=== PATIENT | female | born 1955 | race Hispanic/Latino ===

== ENCOUNTER 2018-05-21 15:55 | Emergency (ER) | payer BC ==
[2018-05-21 16:54] LABS: CREATININE 0.9 mg/dL (0.5-1.5); POTASSIUM 3.7 mmol/L (3.5-5.1)
[2018-05-21 16:57] LABS: BASOPHILS % (AUTO) 0.3 % (0.0-5.0); EOSINOPHILS % (AUTO) 4.5 % (0.0-8.0); HEMATOCRIT 39.4 % (36-48); LYMPHOCYTES % (AUTO) 22.2 % (21.0-51.0); MEAN CORPUSCULAR HEMOGLOBIN 30.4 pg (27.0-33.0); MEAN CORPUSCULAR VOLUME 92.2 fL (79-99); MONOCYTES % (AUTO) 7.6 % (3.0-13.0); NEUTROPHILS % (AUTO) 65.4 % (40.0-77.0); NUCLEATED RED BLOOD CELLS 0.1 % (0.0-0.19); PLATELET COUNT (AUTO) 216 K/uL (130-400); RED BLOOD CELL COUNT(AUTO) 4.28 MIL/uL (4.00-5.50); RED CELL DISTRIBUTION WIDTH 12.7 % (11.0-15.5); WHITE BLOOD COUNT (AUTO) 7.1 K/uL (4.8-10.8)
== END 2018-05-21 18:20 | disposition home or self-care (01) ==
LOC: EDH 15:55
DX: I10 Essential (primary) hypertension (principal); K21.9 Gastro-esophageal reflux disease without esophagitis; Z98.51 Tubal ligation status; Z98.890 Other specified postprocedural states
CPT/HCPCS: 36415; 80048; 85025; 93005

== ENCOUNTER 2019-03-16 15:01 | Observation (INO) | payer BC ==
[~2019-03-16] VITALS: Ht 152.4 cm; Wt 93.0 kg
[2019-03-16] MEDS ORDERED: ASPIRIN 325 MG TABLET ONE (15:19)
[2019-03-16 15:41] LABS: BASOPHILS % (AUTO) 0.5 % (0.0-5.0); HEMATOCRIT 38.9 % (36-48); LYMPHOCYTES % (AUTO) 21.6 % (21.0-51.0); MEAN CORPUSCULAR HEMOGLOBIN 31.2 pg (27.0-33.0); MEAN CORPUSCULAR HGB CONC 34.5 g/dL (32.0-36.0); MEAN CORPUSCULAR VOLUME 90.4 fL (79-99); MONOCYTES % (AUTO) 8.4 % (3.0-13.0); NEUTROPHILS % (AUTO) 63.5 % (40.0-77.0); NUCLEATED RED BLOOD CELLS 0.1 % (0.0-0.19); PLATELET COUNT (AUTO) 237 K/uL (130-400); RED CELL DISTRIBUTION WIDTH 13.2 % (11.0-15.5); WHITE BLOOD COUNT (AUTO) 7.4 K/uL (4.8-10.8)
[2019-03-16] MEDS ORDERED: NITROGLYCERIN 1GM/1 INCH PACKET TD ONE ×2 (15:43→20:45)
[2019-03-16 15:50] LABS: CREATININE 0.9 mg/dL (0.5-1.5); POTASSIUM 3.7 mmol/L (3.5-5.1)
[2019-03-16 15:52] LABS: INR 0.97 (0.85-1.15); PARTIAL THROMBOPLASTIN TIME 26.8 SEC (26.3-35.5); PROTHROMBIN TIME 10.2 SEC (9.6-11.6)
[2019-03-16 15:55] LABS: ALBUMIN 3.2 g/dL (3.5-5.0); BILIRUBIN,TOTAL 0.4 mg/dL (0.2-1.0); TOTAL PROTEIN, SERUM 7.3 g/dL (6.0-8.3)
[2019-03-16 16:12] LABS: B-TYPE NATRIURETIC PEPTIDE 108 pg/mL (0-100)
[2019-03-16] MEDS ORDERED: CLONIDINE HCL 0.1 MG TABLET ONE ×2 (17:39→17:41)
[2019-03-16] MEDS ORDERED: MORPHINE SULFATE 2 MG/ML 1ML SYG IV PRN (20:30)
[2019-03-16] MEDS: NITROGLYCERIN 1GM/1 INCH PACKET TD SCH (20:30)
[2019-03-16] MEDS ORDERED: METOPROLOL TARTRATE 50 MG TAB ONE (20:44)
[2019-03-16] MEDS ORDERED: METOPROLOL TARTRATE 50 MG TAB PO SCH (21:00)
[2019-03-16] MEDS: FAMOTIDINE/PF 20 MG/2 ML VIAL IV SCH (21:00)
[2019-03-16] MEDS ORDERED: ACETAMINOPHEN 325 MG TAB ONE (23:24)
[2019-03-17 04:24] LABS: BASOPHILS % (AUTO) 0.2 % (0.0-5.0); EOSINOPHILS % (AUTO) 4.5 % (0.0-8.0); HEMATOCRIT 38.7 % (36-48); LYMPHOCYTES % (AUTO) 20.7 % (21.0-51.0); MEAN CORPUSCULAR HEMOGLOBIN 31.1 pg (27.0-33.0); MEAN CORPUSCULAR HGB CONC 33.8 g/dL (32.0-36.0); MEAN CORPUSCULAR VOLUME 91.8 fL (79-99); MONOCYTES % (AUTO) 6.7 % (3.0-13.0); NEUTROPHILS % (AUTO) 67.9 % (40.0-77.0); NUCLEATED RED BLOOD CELLS 0.1 % (0.0-0.19); PLATELET COUNT (AUTO) 202 K/uL (130-400); RED BLOOD CELL COUNT(AUTO) 4.22 MIL/uL (4.00-5.50); RED CELL DISTRIBUTION WIDTH 13.1 % (11.0-15.5); WHITE BLOOD COUNT (AUTO) 8.4 K/uL (4.8-10.8)
[2019-03-17] MEDS: NITROGLYCERIN 1GM/1 INCH PACKET TD SCH ×3 (04:30→19:47)
[2019-03-17 04:32] LABS: HEMOGLOBIN A1C 5.6 % (4.0-6.0)
[2019-03-17 04:41] LABS: CREATININE 0.7 mg/dL (0.5-1.5); POTASSIUM 3.4 mmol/L (3.5-5.1)
[2019-03-17] MEDS ORDERED: POTASSIUM CHLORIDE 20MEQ/100ML 100 ML IV PRN (06:00)
[2019-03-17] MEDS ORDERED: LIDOCAINE HCL-MPF 1% 2ML VIAL IV PRN (06:00)
[2019-03-17 08:30] VITALS: BP 178/108
[2019-03-17] MEDS: ASPIRIN 81MG TAB.CHEW PO SCH (09:00)
[2019-03-17] MEDS ORDERED: ENOXAPARIN SODIUM 30 MG/0.3 ML SQ SCH (09:00)
[2019-03-17] MEDS: FAMOTIDINE/PF 20 MG/2 ML VIAL IV SCH ×2 (09:40→21:02)
[2019-03-17 11:30] VITALS: BP 149/92
[2019-03-17] MEDS ORDERED: METO100T14 PO (15:28)
[2019-03-17] MEDS ORDERED: OMEP-50 PO (15:28)
[2019-03-17] MEDS: HYDRALAZINE HCL 20 MG/ML VIAL IV PRN (15:38)
[2019-03-17 15:57] VITALS: BP 187/109
[2019-03-17] MEDS ORDERED: REGADENOSON 0.4 MG/5 ML PF SYG IVP SCH (16:00)
[2019-03-17 19:05] VITALS: BP 162/89
[2019-03-17] MEDS: METOPROLOL TARTRATE 50 MG TAB PO SCH (20:58)
[2019-03-17 23:09] VITALS: BP 169/77
[2019-03-18] VITALS (7 sets, daily range): BP systolic 138–204; BP diastolic 83–111
[2019-03-18] MEDS: NITROGLYCERIN 1GM/1 INCH PACKET TD SCH ×3 (02:39→18:38)
[2019-03-18] MEDS: ACETAMINOPHEN 325 MG TAB PO PRN (04:00)
[2019-03-18] MEDS: ASPIRIN 81MG TAB.CHEW PO SCH (09:37)
[2019-03-18] MEDS: LOSARTAN 50 MG TABLET PO SCH (09:37)
[2019-03-18] MEDS: FAMOTIDINE/PF 20 MG/2 ML VIAL IV SCH ×2 (09:37→21:34)
[2019-03-18] MEDS: METOPROLOL TARTRATE 50 MG TAB PO SCH ×2 (09:38→21:34)
--- NOTE | 2019-03-18 18:00 | NUR ---
INITIAL MET W PATIENT AND SISTER AT BEDSIDE INDP, ALERT, NO DME, LIVES ALONE WITH PETS, HERE FOR CHEST PAIN WITH DISCHARGE ANTICIPATED TOMORROW, NO DC NEEDS ANTICIPATED PT STATED THAT WHEN SHE WAS A [employer]PER[employer] SHE ASKED A LOT MORE QUESTIONS AND WAS IN THE ROOM MUCH LONGER. THIS CM ADVISE DHER THAT THIS IS A SCREENING AND IF SHE HAD NEEDS, WE WOULD FOCUS ON THOSE Addendum: 03/18/19 at 2000 by KARLA SPARROW RN CM Amended: Links added.
[2019-03-18] MEDS: HYDRALAZINE HCL 20 MG/ML VIAL IV PRN (23:02)
[2019-03-19] VITALS (13 sets, daily range): BP systolic 117–166; BP diastolic 62–96
[2019-03-19] MEDS: NITROGLYCERIN 1GM/1 INCH PACKET TD SCH ×3 (02:57→18:47)
[2019-03-19 05:04] LABS: HEMATOCRIT 39.7 % (36-48); MEAN CORPUSCULAR HGB CONC 33.6 g/dL (32.0-36.0); MEAN CORPUSCULAR VOLUME 92.2 fL (79-99); PLATELET COUNT (AUTO) 224 K/uL (130-400); RED BLOOD CELL COUNT(AUTO) 4.31 MIL/uL (4.00-5.50); RED CELL DISTRIBUTION WIDTH 13.2 % (11.0-15.5); WHITE BLOOD COUNT (AUTO) 7.5 K/uL (4.8-10.8)
[2019-03-19 05:09] LABS: PARTIAL THROMBOPLASTIN TIME 27.2 SEC (26.3-35.5); PROTHROMBIN TIME 10.5 SEC (9.6-11.6)
[2019-03-19 05:10] LABS: CREATININE 0.9 mg/dL (0.5-1.5); POTASSIUM 3.9 mmol/L (3.5-5.1)
[2019-03-19 05:27] LABS: EOSINOPHILS % (MANUAL) 2 % (1-6); LYMPHOCYTES % (MANUAL) 15 % (22-44); MAN.DIFF COMMENT-IMPRESSION MANUAL DIFFERENTIAL; MONOCYTES % (MANUAL) 8 % (2-9); SEGMENTED NEUTROPHILS % 75 % (40-70)
[2019-03-19 05:28] LABS: PLATELET MORPHOLOGY COMMENT ADEQUATE
[2019-03-19] MEDS ORDERED: IOHEXOL 350 MG/ML 100ML INFUS..BTL IV ONE (07:36)
[2019-03-19] MEDS ORDERED: LIDOCAINE HCL 2% 20ML ONE (07:36)
[2019-03-19] MEDS ORDERED: IOHEXOL-350 50ML VIAL IV ONE (07:36)
[2019-03-19] MEDS ORDERED: LABETALOL HCL 5 MG/ML 20ML VIAL IV ONE (08:14)
--- NOTE | 2019-03-19 09:10 | NUR ---
Pt returned from Heart cath. Right groin free of hematomas and bruising. Pt denies numbness. Instructed on bedrest, verbalized understanding
[2019-03-19] MEDS: LOSARTAN 50 MG TABLET PO SCH (12:14)
[2019-03-19] MEDS: ASPIRIN 81MG TAB.CHEW PO SCH (12:14)
[2019-03-19] MEDS: FAMOTIDINE/PF 20 MG/2 ML VIAL IV SCH ×2 (12:14→20:42)
[2019-03-19] MEDS: METOPROLOL TARTRATE 50 MG TAB PO SCH ×2 (16:37→20:42)
[2019-03-19] MEDS: ACETAMINOPHEN 325 MG TAB PO PRN (16:37)
[2019-03-20] VITALS: BP 145/69
[2019-03-20] MEDS: NITROGLYCERIN 1GM/1 INCH PACKET TD SCH ×2 (01:50→10:15)
[2019-03-20 03:00] VITALS: BP 167/99
[2019-03-20 04:31] LABS: HEMATOCRIT 37.2 % (36-48); MEAN CORPUSCULAR HGB CONC 33.6 g/dL (32.0-36.0); MEAN CORPUSCULAR VOLUME 92.2 fL (79-99); PLATELET COUNT (AUTO) 233 K/uL (130-400); RED BLOOD CELL COUNT(AUTO) 4.03 MIL/uL (4.00-5.50); RED CELL DISTRIBUTION WIDTH 13.2 % (11.0-15.5); WHITE BLOOD COUNT (AUTO) 7.3 K/uL (4.8-10.8)
[2019-03-20 04:44] LABS: CREATININE 0.9 mg/dL (0.5-1.5); POTASSIUM 3.8 mmol/L (3.5-5.1)
[2019-03-20 04:56] LABS: BAND NEUTROPHILS % (MANUAL) 6 % (0-2); EOSINOPHILS % (MANUAL) 2 % (1-6); LYMPHOCYTES % (MANUAL) 20 % (22-44); MAN.DIFF COMMENT-IMPRESSION MANUAL DIFFERENTIAL; MONOCYTES % (MANUAL) 3 % (2-9); PLATELET MORPHOLOGY COMMENT ADEQUATE; SEGMENTED NEUTROPHILS % 69 % (40-70)
[2019-03-20] MEDS ORDERED: IOHEXOL 350 MG/ML 100ML INFUS..BTL IV ONE (07:56)
[2019-03-20 08:02] VITALS: BP 137/86
--- NOTE | 2019-03-20 08:15 | NUR ---
NOTE AAOX3. DENIES CHEST PAIN OR SOB. BBS CLEAR TO ALL LOBES. NO N/V DRESSING TO RIGHT FEMORAL AREA D/I. SHE UDNERWENT HEART CATH YESTERDAY FOR ABNORMAL STRESS TEST. NEGATIVE FOR CAD BUT THERE WAS AN INCIDENTAL FINDING OF ANEURYSM. SHE IS GOING THIS AM FOR CHEST ANGIOGRAPH FOR EVALUATION OF AORTIC ANEURYSM.
[2019-03-20] MEDS: ASPIRIN 81MG TAB.CHEW PO SCH (08:56)
[2019-03-20] MEDS: FAMOTIDINE/PF 20 MG/2 ML VIAL IV SCH (08:56)
[2019-03-20] MEDS: LOSARTAN 50 MG TABLET PO SCH (08:56)
[2019-03-20] MEDS: METOPROLOL TARTRATE 50 MG TAB PO SCH ×2 (08:56→14:18)
[2019-03-20] MEDS ORDERED: LOSA100T58 PO (12:09)
[2019-03-20] MEDS ORDERED: METO-482 PO (12:09)
[2019-03-20 12:19] VITALS: BP 151/83
--- NOTE | 2019-03-20 12:30 | NUR ---
NOTE DR LIPSCOMB CAME IN TO SEE HER AND HE LOOKED AT RESULTS FROM CT SCAN AND IS DECIDING TO SEND HER HOME TO FOLLOW UP WITH DR PINEDO THIS COMING WEEK. WILL DC HOME WHEN FAMILY IS AVAILABLE TO TRANSPORT HER.
--- NOTE | 2019-03-20 17:30 | NUR ---
NOTE DISCHARGE INSTRUCTIONS GIVEN AT THIS TIME VERBALIZED UNDERSTANDING. REFER TO DC SUMMARY FOR DETAILS. NO OTHER PROBLEMS VOICED AT THIS TIME. PRESCRIPTIONS GIVEN AND EXCUSE FOR WORK.
== END 2019-03-20 17:24 | disposition home or self-care (01) ==
LOC: EDH 15:01 → INTOOBSV 20:22 → EDHIP 20:22 → OBSVTOIN 20:22 → 4BH 03-17 08:18
PROVIDERS: ADMIT Internal Medicine; ATTEND Internal Medicine
DX: R07.2 Precordial pain (principal); I10 Essential (primary) hypertension; K21.9 Gastro-esophageal reflux disease without esophagitis; G47.33 Obstructive sleep apnea (adult) (pediatric); E66.01 Morbid (severe) obesity due to excess calories; R00.1 Bradycardia, unspecified; I44.0 Atrioventricular block, first degree; R94.31 Abnormal electrocardiogram [ECG] [EKG]; I21.9 Acute myocardial infarction, unspecified; R06.02 Shortness of breath; I71.2 Thoracic aortic aneurysm, without rupture; I25.10 Atherosclerotic heart disease of native coronary artery without angina pectoris; Z82.49 Family history of ischemic heart disease and other diseases of the circulatory system; Z79.82 Long term (current) use of aspirin; Z79.899 Other long term (current) drug therapy; Z68.41 Body mass index [BMI] 40.0-44.9, adult
CPT/HCPCS: 36415 ×5; 71045; 71275; 74175; 78452; 80048 ×3; 80053; 80061; 82550; 83036; 83880; 84132; 84484 ×3; 85025 ×4; 85610 ×2; 85730 ×2; 93005 ×3; 93017; 93306; 93458; 93567; 96374; 96375; 96376 ×4; 99291; A9500 ×2; C1894; G0378 ×89; J0360 ×2; J1644; J2785; J3480; J3490 ×10; Q9965; Q9967 ×3; J1650

== ENCOUNTER → 2019-10-08 | Outpatient (CLI) | payer BC ==
[~2019-10-08] MED LIST: IOHEXOL-350 75 ML VIAL IV ONE; LOSA100T58 PO; METO-482 PO; METO100T14 PO; OMEP20CA12 PO
== END | disposition home or self-care (01) ==
LOC: RAH 08:45
PROVIDERS: ATTEND Internal Medicine Cardiovascular Disease
DX: I51.7 Cardiomegaly (principal); I25.10 Atherosclerotic heart disease of native coronary artery without angina pectoris; J98.11 Atelectasis; M47.815 Spondylosis without myelopathy or radiculopathy, thoracolumbar region; K44.9 Diaphragmatic hernia without obstruction or gangrene; K80.20 Calculus of gallbladder without cholecystitis without obstruction; I10 Essential (primary) hypertension; I71.2 Thoracic aortic aneurysm, without rupture
CPT/HCPCS: 71275; Q9967

== ENCOUNTER → 2020-04-20 | Outpatient (CLI) | payer BC ==
[~2020-04-20] MED LIST changes: -IOHEXOL-350 75 ML VIAL IV ONE
[2020-04-20 13:41] LABS: CREATININE 0.9 mg/dL (0.5-1.5)
== END | disposition home or self-care (01) ==
LOC: LAB 12:47
PROVIDERS: ATTEND Internal Medicine Cardiovascular Disease
DX: I71.4 Abdominal aortic aneurysm, without rupture (principal); I10 Essential (primary) hypertension
CPT/HCPCS: 36415; 82565; 84520

== ENCOUNTER → 2020-04-24 | Outpatient (CLI) | payer BC ==
[~2020-04-24] MED LIST changes: +IOHEXOL-350 75 ML VIAL IV ONE
== END | disposition home or self-care (01) ==
LOC: RAH 08:45
PROVIDERS: ATTEND Internal Medicine Cardiovascular Disease
DX: I71.2 Thoracic aortic aneurysm, without rupture (principal); I71.4 Abdominal aortic aneurysm, without rupture; K80.20 Calculus of gallbladder without cholecystitis without obstruction; I10 Essential (primary) hypertension
CPT/HCPCS: 71275; Q9967

== ENCOUNTER 2021-07-30 01:09 | Emergency (ER) | payer BC ==
[~2021-07-30] VITALS: Ht 152.4 cm; Wt 108.0 kg
[~2021-07-30 01:09] MED LIST changes: -IOHEXOL-350 75 ML VIAL IV ONE
[2021-07-30] MEDS ORDERED: 0.9%NACL 1000ML 1,000 ML IV ONE ×2 (02:00)
[2021-07-30 02:14] LABS: BASOPHILS % (AUTO) 0.3 % (0.0-5.0); EOSINOPHILS % (AUTO) 5.6 % (0.0-8.0); HEMATOCRIT 41.9 % (36-48); LYMPHOCYTES % (AUTO) 22.6 % (21.0-51.0); MEAN CORPUSCULAR HEMOGLOBIN 29.3 pg (27.0-33.0); MEAN CORPUSCULAR HGB CONC 32.9 g/dL (32.0-36.0); MONOCYTES % (AUTO) 7.5 % (3.0-13.0); NEUTROPHILS % (AUTO) 63.7 % (40.0-77.0); PLATELET COUNT (AUTO) 264 K/uL (130-400); RED BLOOD CELL COUNT(AUTO) 4.71 MIL/uL (4.00-5.50); RED CELL DISTRIBUTION WIDTH 12.5 % (11.0-15.5); WHITE BLOOD COUNT (AUTO) 8.8 K/uL (4.8-10.8)
[2021-07-30 02:25] LABS: CREATININE 0.9 mg/dL (0.5-1.5); POTASSIUM 3.7 mmol/L (3.5-5.1)
[2021-07-30 02:30] LABS: ALBUMIN 3.7 g/dL (3.5-5.0); BILIRUBIN,TOTAL 0.4 mg/dL (0.2-1.0); TOTAL PROTEIN, SERUM 7.8 g/dL (6.0-8.3)
[2021-07-30] MEDS ORDERED: IOHEXOL 350 MG/ML 100ML INFUS..BTL IV ONE (03:15)
[2021-07-30 05:07] VITALS: BP 125/74
== END 2021-07-30 05:55 | disposition home or self-care (01) ==
LOC: EDH 01:09
DX: U07.1 COVID-19 (principal); R07.89 Other chest pain; I10 Essential (primary) hypertension; K21.9 Gastro-esophageal reflux disease without esophagitis; Z79.899 Other long term (current) drug therapy
CPT/HCPCS: 36415; 71275; 80053; 84484; 85025; 93005; 96360; 96361; 99284; J7030; Q9967

== ENCOUNTER 2022-06-17 13:45 | Emergency (ER) | payer BC ==
[~2022-06-17] VITALS: Ht 152.4 cm; Wt 97.5 kg
[2022-06-17 14:01] VITALS: BP 114/80
[2022-06-17] MEDS ORDERED: NAPR-1192 PO (17:42)
== END 2022-06-17 18:32 | disposition home or self-care (01) ==
LOC: EDH 13:45
DX: S76.011A Strain of muscle, fascia and tendon of right hip, initial encounter (principal); K21.9 Gastro-esophageal reflux disease without esophagitis; I10 Essential (primary) hypertension; W01.0XXA Fall on same level from slipping, tripping and stumbling without subsequent striking against object, initial encounter; Y93.89 Activity, other specified; Y92.89 Other specified places as the place of occurrence of the external cause; Y99.8 Other external cause status
CPT/HCPCS: 73502; 73562

== ENCOUNTER 2023-01-20 12:31 | Emergency (ER) | payer BC ==
[~2023-01-20] VITALS: Ht 152.4 cm; Wt 99.8 kg
[~2023-01-20 12:31] MED LIST changes: -LOSA100T58 PO; +LOSA100T59 PO; +NAPR-1192 PO
[2023-01-20] MEDS ORDERED: CYCL10TA16 PO (13:23)
[2023-01-20] MEDS ORDERED: NAPR-1180 PO (13:23)
[2023-01-20] MEDS ORDERED: KETOROLAC 60 MG VIAL (30MG/ML) IM ONE (13:30)
[2023-01-20] MEDS ORDERED: ORPHENADRINE CITRATE 30 MG/ML ML IM ONE (13:30)
[2023-01-20 14:17] VITALS: BP 118/74
== END 2023-01-20 14:36 | disposition home or self-care (01) ==
LOC: EDH 12:31
DX: M54.6 Pain in thoracic spine (principal); I10 Essential (primary) hypertension; K21.9 Gastro-esophageal reflux disease without esophagitis
CPT/HCPCS: 99284; 96372 ×2; J1885

== ENCOUNTER → 2023-01-30 | Outpatient (CLI) | payer BC ==
[~2023-01-30] MED LIST changes: +CYCL10TA16 PO; +NAPR-1180 PO
[2023-01-30 12:25] LABS: POTASSIUM 3.9 mmol/L (3.5-5.1)
== END | disposition home or self-care (01) ==
LOC: LAB 10:30
PROVIDERS: ATTEND Internal Medicine Cardiovascular Disease
DX: I71.20 Thoracic aortic aneurysm, without rupture, unspecified (principal)
CPT/HCPCS: 36415; 80048

== ENCOUNTER → 2023-02-11 | Outpatient (CLI) | payer BC ==
[~2023-02-11] MED LIST changes: +IOHEXOL 350 MG/ML 100ML INFUS..BTL IV ONE
== END | disposition home or self-care (01) ==
LOC: RAH 09:57
PROVIDERS: ATTEND Internal Medicine Cardiovascular Disease
DX: K44.9 Diaphragmatic hernia without obstruction or gangrene (principal); I71.20 Thoracic aortic aneurysm, without rupture, unspecified; I71.21 Aneurysm of the ascending aorta, without rupture; I11.9 Hypertensive heart disease without heart failure; M47.815 Spondylosis without myelopathy or radiculopathy, thoracolumbar region
CPT/HCPCS: 71275; Q9967

== ENCOUNTER 2023-03-21 02:03 | Observation (INO) | payer BC, MEDICARE ==
[~2023-03-21] VITALS: Ht 152.4 cm; Wt 104.3 kg
[~2023-03-21 02:03] MED LIST changes: -IOHEXOL 350 MG/ML 100ML INFUS..BTL IV ONE
[2023-03-21 02:33] LABS: BASOPHILS # (AUTO) 0.03 K/uL (0.00-0.20); BASOPHILS % (AUTO) 0.4 % (0.0-5.0); EOSINOPHILS # (AUTO) 0.48 K/uL (0.00-0.70); HEMATOCRIT 39.4 % (36-48); IMMATURE GRANULOCYTE ABSOLUTE 0.02 K/uL (0-1); LYMPHOCYTES # (AUTO) 1.7 K/uL (1.0-4.8); LYMPHOCYTES % (AUTO) 21.6 % (21.0-51.0); MEAN CORPUSCULAR HGB CONC 32.5 g/dL (32.0-36.0); MEAN CORPUSCULAR VOLUME 92.3 fL (79-99); MONOCYTES # (AUTO) 0.8 K/uL (0.1-1.0); MONOCYTES % (AUTO) 9.6 % (3.0-13.0); NEUTROPHILS % (AUTO) 62.2 % (40.0-77.0); PLATELET COUNT (AUTO) 254 K/uL (130-400); RED BLOOD CELL COUNT(AUTO) 4.27 MIL/uL (4.00-5.50); RED CELL DISTRIBUTION WIDTH 12.5 % (11.0-15.5); WHITE BLOOD COUNT (AUTO) 8.1 K/uL (4.8-10.8)
[2023-03-21 02:44] LABS: CREATININE 0.9 mg/dL (0.5-1.5); POTASSIUM 3.7 mmol/L (3.5-5.1)
[2023-03-21 02:46] LABS: INR 0.94 (0.85-1.15); PROTHROMBIN TIME 10.9 SEC (9.6-11.6)
[2023-03-21 02:47] LABS: PARTIAL THROMBOPLASTIN TIME 26.9 SEC (26.3-35.5)
[2023-03-21 02:51] LABS: ALBUMIN 3.1 g/dL (3.5-5.0); BILIRUBIN,TOTAL 0.4 mg/dL (0.2-1.0); MAGNESIUM 1.5 mg/dL (1.80-2.40); TOTAL PROTEIN, SERUM 7.4 g/dL (6.0-8.3)
[2023-03-21] MEDS: NITROGLYCERIN 0.4 MG SL TAB SL PRN ×2 (02:59→03:35)
[2023-03-21] MEDS ORDERED: ASPIRIN 325MG TAB PO ONE (03:00)
[2023-03-21] MEDS ORDERED: MORPHINE 4 MG SYG IV PRN (04:00)
[2023-03-21] MEDS ORDERED: ONDANSETRON 4MG INJ IV PRN (04:00)
[2023-03-21] MEDS ORDERED: MORPHINE 2 MG SYG IV PRN (04:00)
[2023-03-21] MEDS ORDERED: ACETAMINOPHEN 325 MG TAB PO PRN ×2 (04:00)
[2023-03-21] MEDS ORDERED: MORPHINE 2 MG SYG IVP ONE (04:00)
[2023-03-21] MEDS ORDERED: NITROGLYCERIN 1GM OINT 1 INCH/1GM TD ONE (04:30)
[2023-03-21] MEDS ORDERED: MAGNESIUM 2GM PREMIX 50ML 50 ML IV PRN (04:30)
[2023-03-21] MEDS ORDERED: KCL 20 MEQ ERTAB PO PRN (04:30)
[2023-03-21] MEDS ORDERED: POTASSIUM CHLORIDE 20MEQ/100ML 100 ML IV PRN (04:30)
[2023-03-21] MEDS ORDERED: LEVO50CA4 PO (04:32)
[2023-03-21] MEDS ORDERED: LOSA1TAB42 PO (04:32)
[2023-03-21] MEDS ORDERED: AEC81 PO (04:32)
[2023-03-21] MEDS ORDERED: METO100T14 PO (04:32)
[2023-03-21] MEDS ORDERED: AMLO-258 PO (04:32)
[2023-03-21 08:00] VITALS: BP 111/68; PULSE 72; RESP 18; O2SAT 96
[2023-03-21] MEDS: ENOXAPARIN SODIUM 40 MG/0.4 ML SYRINGE SQ SCH (09:22)
[2023-03-21] MEDS: FAMOTIDINE 20MG TAB PO SCH (09:22)
[2023-03-21] MEDS: ASPIRIN 81MG CHEW TAB PO SCH (09:22)
[2023-03-21] MEDS: POTASSIUM CHLORIDE 10% ELIXIR 20 MEQ/15 ML UDCUP PO PRN ×2 (09:23→10:47)
[2023-03-21 09:50] LABS: MAGNESIUM 1.5 mg/dL (1.80-2.40); PHOSPHORUS 4.5 mg/dL (2.5-4.9); THYROID STIMULATING HORMONE 7.12 uIU/mL (0.36-3.74)
[2023-03-21 12:00] VITALS: BP 107/65; PULSE 63; RESP 17
[2023-03-21 16:00] VITALS: BP 107/65; PULSE 70; RESP 20
[2023-03-21 19:30] VITALS: BP 110/67; PULSE 79; RESP 20
[2023-03-21 20:00] VITALS: O2SAT 96
[2023-03-22 00:23] VITALS: BP 151/98; PULSE 77; RESP 18
[2023-03-22 04:02] VITALS: BP 145/68; PULSE 69; RESP 18
[2023-03-22 04:07] LABS: BASOPHILS # (AUTO) 0.03 K/uL (0.00-0.20); BASOPHILS % (AUTO) 0.6 % (0.0-5.0); EOSINOPHILS # (AUTO) 0.33 K/uL (0.00-0.70); EOSINOPHILS % (AUTO) 6.3 % (0.0-8.0); HEMATOCRIT 36.7 % (36-48); IMMATURE GRANULOCYTE ABSOLUTE 0.02 K/uL (0-1); LYMPHOCYTES # (AUTO) 1.4 K/uL (1.0-4.8); LYMPHOCYTES % (AUTO) 26.5 % (21.0-51.0); MEAN CORPUSCULAR HEMOGLOBIN 30.2 pg (27.0-33.0); MEAN CORPUSCULAR HGB CONC 31.9 g/dL (32.0-36.0); MEAN CORPUSCULAR VOLUME 94.6 fL (79-99); MONOCYTES # (AUTO) 0.5 K/uL (0.1-1.0); MONOCYTES % (AUTO) 9.2 % (3.0-13.0); PLATELET COUNT (AUTO) 211 K/uL (130-400); RED BLOOD CELL COUNT(AUTO) 3.88 MIL/uL (4.00-5.50); RED CELL DISTRIBUTION WIDTH 12.8 % (11.0-15.5); WHITE BLOOD COUNT (AUTO) 5.2 K/uL (4.8-10.8)
[2023-03-22 04:13] LABS: CREATININE 0.8 mg/dL (0.5-1.5); POTASSIUM 3.8 mmol/L (3.5-5.1)
[2023-03-22 07:36] VITALS: BP 141/87; PULSE 72; RESP 18
[2023-03-22 07:39] VITALS: O2SAT 96
[2023-03-22] MEDS: ASPIRIN 81MG CHEW TAB PO SCH (08:59)
[2023-03-22] MEDS: FAMOTIDINE 20MG TAB PO SCH (08:59)
[2023-03-22] MEDS ORDERED: LOSARTAN 100 MG TABLET PO SCH (09:00)
[2023-03-22] MEDS ORDERED: NON-FORMULARY MEDICATION 1 EACH (Amlodipine Besylate 10 MG) PO SCH (09:00)
[2023-03-22] MEDS ORDERED: AMLODIPINE 5 MG TAB PO SCH (09:00)
[2023-03-22] MEDS ORDERED: NON-FORMULARY MEDICATION 1 EACH (Metoprolol Tartrate 100 MG) PO SCH (09:00)
[2023-03-22] MEDS ORDERED: NON-FORMULARY MEDICATION 1 EACH (Losartan/Hydrochlorothiazide (Losartan-Hctz 100-12.5 mg T PO SCH (09:00)
[2023-03-22] MEDS ORDERED: HYDROCHLOROTHIAZIDE 25 MG TABLET PO SCH (09:00)
[2023-03-22] MEDS: ENOXAPARIN SODIUM 40 MG/0.4 ML SYRINGE SQ SCH (09:03)
[2023-03-22 09:07] LABS: ALBUMIN 2.6 g/dL (3.5-5.0); BILIRUBIN,DIRECT 0.1 mg/dL (0.0-0.3); BILIRUBIN,TOTAL 0.5 mg/dL (0.2-1.0); MAGNESIUM 1.7 mg/dL (1.80-2.40); TOTAL PROTEIN, SERUM 6.4 g/dL (6.0-8.3)
[2023-03-22 11:14] VITALS: BP 141/91; PULSE 81; RESP 18
[2023-03-22] MEDS ORDERED: METOPROLOL TARTRATE 50 MG TAB PO SCH (17:00)
[2023-03-23] MEDS ORDERED: LEVOTHYROXINE 50 MCG TABLET PO SCH (06:30)
[2023-03-23] MEDS ORDERED: NON-FORMULARY MEDICATION 1 EACH (Levothyroxine Sodium (Levothyroxine) 50 MCG) PO SCH (07:30)
== END 2023-03-22 14:22 | disposition home or self-care (01) ==
LOC: EDH 02:03 → EDHIP 03:57 → INTOOBSV 03:57 → 2AH 07:48
PROVIDERS: ADMIT Internal Medicine; ATTEND Internal Medicine
DX: K52.9 Noninfective gastroenteritis and colitis, unspecified (principal); E83.42 Hypomagnesemia; K21.9 Gastro-esophageal reflux disease without esophagitis; I71.20 Thoracic aortic aneurysm, without rupture, unspecified; I10 Essential (primary) hypertension; E06.3 Autoimmune thyroiditis; Z79.82 Long term (current) use of aspirin; Z86.79 Personal history of other diseases of the circulatory system; Z51.5 Encounter for palliative care; Z79.899 Other long term (current) drug therapy
CPT/HCPCS: 96372 ×2; 96365; 96366; 96375; 99285; 80050; 83735 ×4; 84100; 84484 ×2; 85610; 85730; 82948 ×4; 36415 ×2; 71045; 93306; 93356; 93005; 80076; 80048; 85025; 84439; 84481; G0378 ×23; J3475; J2270; J1650 ×2; 80053; 84443

== ENCOUNTER → 2024-03-11 | Outpatient (CLI) | payer BC ==
[~2024-03-11] MED LIST changes: +AEC81 PO; +AMLO-258 PO; -CYCL10TA16 PO; +LEVO50CA4 PO; -LOSA100T59 PO; +LOSA1TAB42 PO; -METO-482 PO; -NAPR-1180 PO; -NAPR-1192 PO
[2024-03-11 16:27] LABS: CREATININE 1.1 mg/dL (0.5-1.0); POTASSIUM 3.9 mmol/L (3.5-5.1)
== END | disposition home or self-care (01) ==
LOC: LAB 14:07
PROVIDERS: ATTEND Physician Assistant
DX: I10 Essential (primary) hypertension (principal)
CPT/HCPCS: 36415; 80048

== ENCOUNTER → 2024-10-06 | Outpatient (CLI) | payer BC, MEDICARE ==
--- NOTE | 2024-10-06 15:05 | NUR ---
Unable to perform N2 Washout due to poor inspiratory effort. Attempted twice. Addendum: 10/06/24 at 1507 by JAE RIVAS Amended: Links added.
== END | disposition home or self-care (01) ==
LOC: RESP 12:34
PROVIDERS: ATTEND Internal Medicine Cardiovascular Disease
DX: R06.00 Dyspnea, unspecified (principal); R06.02 Shortness of breath
CPT/HCPCS: 94060; 94729

== ENCOUNTER 2025-02-05 08:04 | Emergency (ER) | payer BC ==
[~2025-02-05] VITALS: Ht 152.4 cm; Wt 106.8 kg
[~2025-02-05 08:04] MED LIST changes: -LEVO50CA4 PO; +LEVO50CA5 PO
[2025-02-05 08:34] LABS: APPEARANCE,URINE CLEAR (CLEAR); GLUCOSE, URINE (UA) NEGATIVE (NEGATIVE); LEUKOCYTE ESTERASE ,URINE NEGATIVE Leu/uL (NEGATIVE); NITRATE,URINE NEGATIVE (NEGATIVE); OCCULT BLOOD,URINE SMALL (NEGATIVE)
[2025-02-05 08:37] LABS: ADD UA MICROSCOPIC YES
[2025-02-05 08:38] LABS: SQUAMOUS EPITHELIAL CELL,UR RARE /HPF (0-2)
[2025-02-05 08:44] LABS: IMMATURE GRANULOCYTE ABSOLUTE 0.03 K/uL (0-1); NUCLEATED RED BLOOD CELLS 0.0 % (0.0-0.19); PLATELET COUNT (AUTO) 275 K/uL (130-400); RED BLOOD CELL COUNT(AUTO) 4.43 MIL/uL (4.00-5.50); RED CELL DISTRIBUTION WIDTH 13.2 % (11.0-15.5); WHITE BLOOD COUNT (AUTO) 9.5 K/uL (4.8-10.8)
--- NOTE | 2025-02-05 08:44 | ERN ---
General Chief Complaint: Chest Pain Stated Complaint: CP Time Seen by MD: 08:06 Source: patient History of Present Illness Initial Comments Patient is a 69-year-old female coming in complaining of epigastric and midsternal chest pain. Patient states that this began earlier in the morning. She does has a history of an aneurysm in her abdominal aorta. She states that the discomfort made her come in to be evaluated. Allergies: Coded Allergies: No Known Allergies (Verified Allergy, Unknown, 03/16/19) Home Meds Reported Medications Aspirin (ASPIRIN 81 MG ECTAB) 81 Mg Ectab, 81 MG PO DAILY, TAB.EC 03/21/23 Levothyroxine Sodium (Levothyroxine) 50 Mcg Capsule, 50 MCG PO ACBKFST, CAP 03/21/23 Amlodipine Besylate (Amlodipine Besylate) 10 Mg Tablet, 10 MG PO DAILY for 30 Days, #30 TAB 0 Refills 03/21/23 Losartan/Hydrochlorothiazide (Losartan-Hctz 100-12.5 mg Tab) 1 Each Tablet, 1 EACH PO DAILY, TAB 03/21/23 Metoprolol Tartrate (Metoprolol Tartrate) 100 Mg Tablet, 100 MG PO BID, TAB 03/21/23 Omeprazole (Omeprazole) 20 Mg Capsule.dr, 20 MG PO AM, CAP 03/17/19 Past Medical History Past Medical History: GERD, Hypertension Medical History Other: aa Past Surgical History: BTL Surgical History Other: TUBAL LIGATION Social History Social History: Negative, Other ROS Dictation CONSTITUTIONAL: No chills, no fever, no weakness, no diaphoresis, no malaise. HEAD/FACE: No signs of trauma. EENT: No eye pain, no blurred vision, no tearing, no double vision, no ear pain, no ear discharge, no nose pain, no nasal congestion, no throat pain, no throat swelling, no mouth pain. RESPIRATORY: No cough, no orthopnea, no SOB, no stridor, no wheezing. CARDIOVASCULAR: chest pain, no edema, no palpitations, no syncope. GASTROINTESTINAL/ABDOMINAL: No abdominal pain, no constipation, no diarrhea, no nausea, no vomiting. GENITOURINARY: No abnormal discharge, no dysuria, no frequent urination, no hematuria. No complaints of pain in the genitals. MUSCULOSKELETAL: No back pain, no gout, no joint pain, no joint swelling, no muscle pain, no muscle stiffness, no neck pain. INTEGUMENTARY: No change in color, no change in hair/nails, no dryness, no lesion, no lumps, no rash. NEUROLOGICAL/PSYCH: No anxiety, not depressed, no emotional problem, no headache, no numbness, no pre-existing deficit, no history of seizures, no tremors, no weakness. HEMATOLOGIC/LYMPHATIC: Not anemic, no history of blood clots, no apparent bleeding, no bruising, glands not swollen. All Systems Negative, Except as Noted. Physical Exam Physical Exam Dictation VITAL SIGNS: Reviewed. GENERAL APPEARANCE: Alert, oriented x3, no acute distress, obese. HEAD AND FACE: Non-traumatic. EYES: PERRL, pink conjunctivas, eyelid no trauma, anterior chamber clear. EARS: Pinnas intact and no signs of trauma or erythema. Ear canals clear and no discharge. TMs no erythema. NOSE: No discharge, no bleeding. OROPHARYNX: Mouth normal, teeth no caries, tongue pink. Pharynx clear, no erythema. Tonsils no exudates, no abscesses noted. Mucous membrane moist. NECK: Supple, non-tender, no thyromegaly, no masses, no JVD, no bruits. BREAST: Deferred. CHEST: No tenderness, no crepitus, no paradoxical movement, no retractions. LUNGS: Clear, well-ventilated, symmetric, no rales, no wheezing, no rhonchi, no stridor, good breath sounds bilaterally. HEART: Regular rate, regular rhythm, no murmur, no gallops. VASCULAR: No peripheral edema. ABDOMEN: Soft, positive bowel sounds, nondistended, no guarding, nontender, no rebound, no masses no hepatomegaly, no splenomegaly, no Tamayo's sign, no hernias. RECTAL: Deferred. GENITAL: Deferred. NEUROLOGICAL: Normal speech, gross motor function intact, gross sensory function intact. MUSCULOSKELETAL: Neck nontender, full range of motion, back nontender, full range of motion. EXTREMITIES: Nontender, full range of motion. SKIN: Color pink, dry, no turgor, no rash, no lacerations, no abrasions, no contusions. LYMPHATICS: Deferred. Results Laboratory and Microbiology Lab and Micro Result Laboratory Tests Test 02/05/25 08:22 02/05/25 08:41 Urine Color LIGHT-YELLOW (YELLOW) Urine Appearance CLEAR (CLEAR) Urine pH 5.5 (5.0-8.0) Urine Specific [place] 1.016 (1.001-1.031) Urine Protein NEGATIVE mg/dL (NEGATIVE) Urine Glucose (UA) NEGATIVE mg/dL (NEGATIVE) Urine Ketones NEGATIVE mg/dL (NEGATIVE) Urine Occult Blood SMALL (NEGATIVE) H Urine Nitrate NEGATIVE (NEGATIVE) Urine Bilirubin NEGATIVE mg/dL (NEGATIVE) Urine Urobilinogen 0.2 mg/dL (0.2-1.0) Urine Leukocyte Esterase NEGATIVE Vlad/uL Urine RBC 2-5 /HPF (0-1) H Urine WBC 2-5 /HPF (0-1) H Urine Squamous Epithelial Cells RARE /HPF (0-2) Urine Bacteria None /HPF (None Seen) White Blood Count 9.5 K/uL (4.8-10.8) Red Blood Count 4.43 MIL/uL (4.00-5.50) Hemoglobin 13.2 g/dL (12.0-16.0) Hematocrit 39.9 % (36-48) Mean Corpuscular Volume 90.1 fL (79-99) Mean Corpuscular Hemoglobin 29.8 pg (27.0-33.0) Mean Corpuscular Hemoglobin Concent 33.1 g/dL (32.0-36.0) Red Cell Distribution Width 13.2 % (11.0-15.5) Platelet Count 275 K/uL (130-400) Mean Platelet Volume 10.3 fL (7.5-10.5) Immature Granulocyte % (Auto) 0.3 % (0-1) Neutrophils (%) (Auto) 61.6 % (40.0-77.0) Lymphocytes (%) (Auto) 15.1 % (21.0-51.0) L Monocytes (%) (Auto) 8.3 % (3.0-13.0) Eosinophils (%) (Auto) 14.4 % (0.0-8.0) H Basophils (%) (Auto) 0.3 % (0.0-5.0) Neutrophils # (Auto) 5.8 K/uL (1.8-7.7) Lymphocytes # (Auto) 1.4 K/uL (1.0-4.8) Monocytes # (Auto) 0.8 K/uL (0.1-1.0) Eosinophils # (Auto) 1.37 K/uL (0.00-0.70) H Basophils # (Auto) 0.03 K/uL (0.00-0.20) Absolute Immature Granulocyte (auto 0.03 K/uL (0-1) Nucleated Red Blood Cells 0.0 % (0.0-0.19) Sodium Level 129 mmol/L (136-145) L Potassium Level 3.8 mmol/L (3.5-5.1) Chloride Level 96 mmol/L (101-111) L Carbon Dioxide Level 27 mmol/L (21-32) Blood Urea Nitrogen 19 mg/dL (7-18) H Creatinine 0.9 mg/dL (0.5-1.0) Glomerular Filtration Rate Calc 70 mL/min (>90) Random Glucose 120 mg/dL (70-105) H Total Calcium 8.5 mg/dL (8.5-10.1) Magnesium Level 1.70 mg/dL (1.80-2.40) L Total Bilirubin 0.4 mg/dL (0.2-1.0) Aspartate Amino Transf (AST/SGOT) 33 U/L (10-37) Alanine Aminotransferase (ALT/SGPT) 42 U/L (12-78) Alkaline Phosphatase 58 U/L (50-136) Troponin I High Sensitivity 6 ng/L (4-50) Total Protein 7.6 g/dL (6.0-8.3) Albumin 3.3 g/dL (3.5-5.0) L Lipase 47 U/L (16-77) Labs Reviewed?: Yes EKG/XRAY/US/CT/MRI EKG Comment 02/05/2025 time 8:10 a.m. Ventricular rate 60 Sinus rhythm MD [address] wave elevation or depression MDM MDM: Differential diagnosis: Viral Gastroenteritis, gastroenteritis, hypomagnesemia, Rationale: Tests considered and ordered secondary to shared decision making include: Previous outside records reviewed: Old ER visits. Risk of complication and/or morbidity or mortality of patient management: None Medications-Per medication reconciliation Need for hospitalization: Patient does not meet criteria for hospitalization. Patient is a 69-year-old female coming in complaining of abdominal discomfort. Laboratory workup within normal limits. Magnesium was replaced patient was hydrated with IV fluids states she feels much better we will be discharged in stable condition with a diagnosis of viral gastroenteritis medication for symptomatic relief. Patient is a were to follow up with as she was instructed do so. ED Course Orders Procedure Category Date Status Time Cbc With Differential LAB 02/05/25 Complete 08:07 Chest 1vw RAD 02/05/25 Resulted 08:07 12 Lead Ekg Tracing- EKG 02/05/25 Logged Technical 08:07 Magnesium LAB 02/05/25 Complete 08:07 Troponin I High LAB 02/05/25 Complete Sensitivity 08:07 Urinalysis Profile LAB 02/05/25 Complete 08:07 Comprehensive LAB 02/05/25 Complete Metabolic Panel 08:07 Lipase LAB 02/05/25 Complete 08:07 Lidocaine Hcl 2% PHA 02/05/25 Complete Viscous (Lidocaine Hcl 08:30 Mag/Alum/Simeth 30ml PHA 02/05/25 Complete (Maalox Plus 30ml) 08:30 Pantoprazole 40mg Inj PHA 02/05/25 Complete (Protonix 40mg Inj 08:30 Magnesium 2gm Premix PHA 02/05/25 Complete 50ml (Magnesium 2gm 09:10 Current Medications Medications (Trade) Dose Ordered Sig/Sebastien Route PRN Reason Start Time Stop Time Status Last Admin Dose Admin Al Hydroxide/Mg Hydroxide (MAALox PLUS 30ML) 30 ml ONCE ONCE PO 02/05/25 08:30 02/05/25 08:31 DC 02/05/25 08:48 Lidocaine HCl (Lidocaine HCl 2% Viscous) 10 ml ONCE ONCE PO 02/05/25 08:30 02/05/25 08:31 DC 02/05/25 08:48 Magnesium Sulfate 50 ml @ 0 mls/hr PROTOCOL STAT IV 02/05/25 09:10 02/05/25 09:14 DC 02/05/25 09:18 Pantoprazole Sodium (PROTonix 40MG INJ) 40 mg ONCE ONCE IVP 02/05/25 08:30 02/05/25 08:31 DC 02/05/25 08:48 Vital Signs Date Time Temp Pulse Resp B/P (MAP) Pulse Ox O2 Delivery O2 Flow Rate FiO2 02/05/25 09:01 98.2 64 18 146/79 99 Room Air* 0 21 02/05/25 08:10 97.9 67 20 164/90 99 Room Air* 0 21 02/05/25 08:06 97.0 67 20 164/90 99 Room Air 0 DX & DISP Disposition: Discharge Departure Impression: Primary Impression: Viral gastroenteritis Additional Impression: Gastritis Condition: Stable Scripts Lactobacillus Acidophilus (Acidophilus Probiotic) 500 Million Cell Capsule 1 CAP PO BID for 5 Days, #10 CAP 0 Refills Prov: EMILY BARAJAS MD 02/05/25 Pantoprazole Sodium (Protonix) 40 Mg Ectab 1 TAB PO DAILY for 30 Days, #30 TAB 0 Refills Prov: EMILY BARAJAS MD 02/05/25 Additional Instructions: FOLLOW-UP WITH PRIMARY CARE PROVIDER IN 1 TO 2 DAYS. TAKE MEDICATIONS DIRECTED HERE IN THE EMERGENCY ROOM. OKAY TO CONTINUE HOME MEDICATIONS UNLESS OTHERWISE DISCUSSED DURING YOUR VISIT IN THE EMERGENCY ROOM TODAY. RETURN TO YOUR NEAREST EMERGENCY ROOM IF SYMPTOMS WORSEN OR IF THERE IS NO IMPROVEMENT. CALL 911 IF YOU NEED IMMEDIATE ASSISTANCE. TAKE TYLENOL [id number] NEEDED AND IF NO CONTRAINDICATIONS ARE PRESENT. INCREASE ORAL HYDRATION. A WOUND CULTURE OR URINE CULTURE WAS ORDERED HERE IN THE EMERGENCY ROOM DEPARTMENT PLEASE FOLLOW-UP WITH PRIMARY CARE PROVIDER AND ADVISE THEM TO GET REPORTS FROM OUR FACILITY. IF YOU HAD ANY TREVIN WRAP/SPLINTS THAT WERE APPLIED HERE, PLEASE DO NOT REMOVE THEM UNTIL YOU SEE YOUR PRIMARY CARE OR SPECIALTY. Referrals: Referrals: IVONNE GIBSON M.D. (PCP) Time of Disposition: 09:57 EMILY BARAJAS MD Feb 05, 2025 08:44
--- NOTE | 2025-02-05 08:46 | HMCIMG ---
CHEST 1VW REASON: cp COMPARISON: Prior study from 06/04/2024 is available. FINDINGS: Single view of the chest was obtained. Lungs are clear. Heart size is normal. There is uncoiling and atherosclerotic changes thoracic aorta. There is no pulmonary vascular congestion. Mediastinum and bony thorax appear unremarkable. IMPRESSION: This study is unchanged from prior study with no evidence of airspace consolidation or pulmonary venous congestion.
[2025-02-05] MEDS: MAG/ALUM/SIMETH 30 ML UDCUP PO ONE (08:48)
[2025-02-05] MEDS: LIDOCAINE HCL 2% VISCOUS 15 ML UDCUP PO ONE (08:48)
[2025-02-05 08:57] LABS: ASPARTATE AMINOTRANSFERASE 33.0 U/L (10-37); CREATININE 0.9 mg/dL (0.5-1.0); GLOMERULAR FILTR. RATE CALC 70.0 mL/min (>90); GLUCOSE,RANDOM 120.0 mg/dL (70-105); SODIUM SERUM 129.0 mmol/L (136-145); TOTAL PROTEIN, SERUM 7.6 g/dL (6.0-8.3); UREA NITROGEN, BLOOD 19.0 mg/dL (7-18)
[2025-02-05] MEDS: MAGNESIUM 2GM PREMIX 50ML 50 ML IV STA (09:18)
[2025-02-05] MEDS ORDERED: PANT40TA55 PO (09:58)
[2025-02-05] MEDS ORDERED: LACT-356 PO (09:58)
[2025-02-05 10:00] VITALS: BP 163/99; PULSE 65; RESP 17; TEMP 98.7; O2SAT 99
--- NOTE | 2025-02-05 10:06 | NUR ---
PT AAOX4 STABLE NO DISTRESS VITALS WNL NO C/O PAIN NOW. PT DRESSED HERSELF , IV REMOVED CATHETER INTACT, PT DRIVEN HOME BY DAUGHTER.
--- NOTE | 2025-02-05 11:06 | EKG ---
[facility] Test Date: 2025-02-05 Test Time: 08:10:49 Pat Name: IVONNE ENGEL Department: ED Room: Gender: F Licensed Clinical Psychologist: [id number] : 1955 Requested By: EMILY BARAJAS Order Number: [id number] Reading MD: Michael Chamorro Measurements Intervals [place] Rate: 60 P: -2 ID: [id number] QRS: -7 QRSD: 84 T: 24 QT: 415 QTc: 417 Interpretive Statements Sinus rhythm Prolonged ID interval Compared to ECG 06/05/2024 14:14:10 Myocardial infarct finding no longer present Electronically Signed On 02-07-2025 00:02:52 CDT by Michael Chamorro Please click the below link to view image of tracing.
== END 2025-02-05 10:09 | disposition home or self-care (01) ==
LOC: EDH 08:04
DX: A08.4 Viral intestinal infection, unspecified (principal); K29.70 Gastritis, unspecified, without bleeding; I10 Essential (primary) hypertension; I21.9 Acute myocardial infarction, unspecified; Z79.82 Long term (current) use of aspirin; Z79.899 Other long term (current) drug therapy; Z98.51 Tubal ligation status
CPT/HCPCS: 99284; 96365; 71045; 96375; 83735; 84484; 80053; 83690; 85025; 81001; 36415; 93005; J3475; J2470